=== PATIENT | female | born 1965 | race African-American/Black ===

== ENCOUNTER 2018-01-04 20:51 | Emergency (ER) | payer OTHER ==
[~2018-01-04] VITALS: Ht 160 cm; Wt 88.9 kg
[~2018-01-04 20:51] MED LIST: CIPRO HC OTIC S10 M1 OT; CIPROFLOXACIN500 M2 ORAL; LIPITOR40 MG ORAL; LISINOPRIL40 MG ORAL; NORCO 5-325 TA1 EACH ORAL; SOMA350 MG PO; TYLENOL WITH C1 EAC2 ORAL
[2018-01-04 21:05] VITALS: BP 135/95
[2018-01-04] MEDS ORDERED: Fluorescein Strips LEFT EYE ONE (21:15)
[2018-01-04] MEDS ORDERED: POLYTRIM OP SOL10 ML OPHTHALM (21:23)
[2018-01-04] MEDS ORDERED: HYDROCODON-ACE1 EA15 ORAL (21:23)
--- NOTE | 2018-01-04 21:24 | Emergency Room Report ---
History of Present Illness General Chief Complaint: Eye Problems Source: Patient Present Illness HPI Is a 52-year-old female with a history of lupus. She presents with chief complaint of right eye pain. Last night she accidentally scratched her eye with her nails. Since then his been painful. Tearing. Worse with lights. No nausea no vomiting. Better with darkness. Pain is 8 out of 10. Denies any other complaint. No blurry vision. No drainage. Allergies: Coded Allergies: PENICILLINS (Unverified Allergy, Severe, Hives, 05/22/14) TRAMADOL (Unverified Allergy, Severe, tongue swelling, 05/22/14) PREDNISONE (Unverified Allergy, Unknown, electrical shock to her legs, ) Patient History Past Medical History: see triage record, old chart reviewed Past Surgical History: other Pertinent Family History: none Social History: Denies: smoking Last Menstrual Period: na Now: No Immunizations: other Reviewed Nursing Documentation: PMH: Agreed; PSxH: Agreed Nursing Documentation-PMH Past Medical History: No History, Except For Hx Cardiac Problems: No Hx Hypertension: No Hx Pacemaker: No Hx Asthma: No Hx COPD: No Hx Diabetes: No Hx Cancer: No Hx Gastrointestinal Problems: No Hx Dialysis: No Hx Cerebrovascular Accident: No Hx Seizures: No Review of Systems Eye: Denies: eye pain, blurred vision ENT: Reports: ear pain; Denies: nose congestion, throat swelling Respiratory: Denies: cough, shortness of breath Cardiovascular: Denies: chest pain, palpitations Gastrointestinal: Denies: abdominal pain, diarrhea, nausea, vomiting Musculoskeletal: Denies: back pain, joint pain Skin: Denies: rash Neurological: Denies: headache, numbness Endocrine: Denies: increased thirst, increased urine Hematologic/Lymphatic: Denies: easy bruising All Other Systems: negative except mentioned in HPI Physical Exam Vital Signs Date Time Temp Pulse Resp B/P (MAP) Pulse Ox O2 Delivery O2 Flow Rate FiO2 01/04/18 20:58 98.1 86 18 135/95 96 Room Air vitals normal Sp02 EP Interpretation: reviewed, normal General Appearance: well appearing, no apparent distress, alert Head: normocephalic, atraumatic Eyes: right eye fluoroscene uptake, right eye other - cornea abrasion at 12 o' clock position; bilateral eye PERRL, bilateral eye EOMI ENT: hearing grossly normal, normal pharynx Neck: full range of motion, supple, no meningismus Respiratory: chest non-tender, lungs clear, normal breath sounds Cardiovascular #1: regular rate, rhythm, no murmur Gastrointestinal: normal bowel sounds, non tender, no mass, no organomegaly, no bruit, non-distended Musculoskeletal: back normal, gait/station normal, normal range of motion Psychiatric: mood/affect normal Skin: warm/dry Medical Decision Making Diagnostic Impression: Primary Impression: Corneal abrasion, right Qualified Codes: S05.01XA - Injury of conjunctiva and corneal abrasion without foreign body, right eye, initial encounter ER Course Patient with a cornea abrasion. Negative Lara sign. No globe rupture. No foreign body. We'll discharge home. Last Vital Signs Date Time Temp Pulse Resp B/P (MAP) Pulse Ox O2 Delivery O2 Flow Rate FiO2 01/04/18 20:58 98.1 86 18 135/95 96 Room Air Status: improved Disposition: HOME, SELF-CARE Condition: Stable Scripts Polymyxin/Trimethoprim (Polytrim Eye Drops) 10 Ml Drops 2 DROP OPHTHALM THREE TIMES A DAY, #1 EA Instill in affected eye for 7 days Prov: Abdulaziz Rust MD 01/04/18 Hydrocodone/Acetaminophen 5-325* (HYDROCODONE/ACETAMINOPHEN 5-325*) 1 Each Tablet 1 TAB ORAL Q6H PRN for For Pain, #10 TAB 0 Refills Prov: Abdulaziz Rust MD 01/04/18 Additional Instructions: Follow-up with your DrJerry in 2 to 3 days if not better. You may need a referral to see an eye doctor. Return if worse. Abdulaziz Rust MD Jan 04, 2018 21:24
[2018-01-04 21:30] VITALS: BP 136/90
== END 2018-01-04 21:30 | disposition home or self-care (01) ==
LOC: EMR 21:22
DX: S05.01XA Injury of conjunctiva and corneal abrasion without foreign body, right eye, initial encounter (principal); W50.4XXA Accidental scratch by another person, initial encounter; Y93.9 Activity, unspecified; Y92.9 Unspecified place or not applicable; Z88.0 Allergy status to penicillin; Z88.8 Allergy status to other drugs, medicaments and biological substances
CPT/HCPCS: 99283

== ENCOUNTER 2018-03-30 12:13 | Emergency (ER) | payer OTHER ==
[~2018-03-30] VITALS: Ht 160 cm; Wt 88.0 kg
[~2018-03-30 12:13] MED LIST changes: +HYDROCODON-ACE1 EA15 ORAL; +POLYTRIM OP SOL10 ML OPHTHALM
[2018-03-30] MEDS ORDERED: plaquenil (12:23)
--- NOTE | 2018-03-30 12:32 | NUR ---
ED Nurse Note: Pt came into the Er w/ complaints of dizziness x 1 month. Pt visited her primary and gave her vertigo medications. Her primary stated that after these medications, the vertigo will go away. Pt states she is still feeling dizzy. Complaining of generalized body pain 10/. A + O x4. Ambulatory. Skin warm to touch.
--- NOTE | 2018-03-30 12:45 | Emergency Room Report ---
History of Present Illness General Chief Complaint: Dizziness Source: Patient, Medical Record Present Illness HPI Patient presents with reports of dizziness ongoing for over the past month patient reports that she recently saw her primary physician who reported she likely had vertigo Patient is on multiple medications including medication pre-kidney transplant Trazodone, Flexeril patient has history of lupus Reports that this morning when getting up to go to the restroom she had an episode of acute increased dizziness this was followed by nausea Patient denies any headache however does have fibromyalgia with diffuse abdominal and body pain Does not report any difference from baseline Denies any posterior neck pain or photophobia denies any chest pain denies any focal weakness or change in speech Allergies: Coded Allergies: PENICILLINS (Unverified Allergy, Severe, Hives, 05/22/14) TRAMADOL (Unverified Allergy, Severe, tongue swelling, 05/22/14) PREDNISONE (Unverified Allergy, Unknown, electrical shock to her legs, ) Patient History Past Medical History: see triage record Pertinent Family History: none Last Menstrual Period: 07/25 Reviewed Nursing Documentation: PMH: Agreed; PSxH: Agreed Nursing Documentation-PMH Past Medical History: No History, Except For Hx Cardiac Problems: No Hx Hypertension: No Hx Pacemaker: No Hx Asthma: No Hx COPD: No Hx Diabetes: No Hx Cancer: No Hx Gastrointestinal Problems: No Hx Dialysis: No Hx Neurological Problems: No - lupus, spinal stenosis, peripheral neuropathy, arthritis Hx Cerebrovascular Accident: No Hx Seizures: No Review of Systems All Other Systems: negative except mentioned in HPI Physical Exam Vital Signs Date Time Temp Pulse Resp B/P (MAP) Pulse Ox O2 Delivery O2 Flow Rate FiO2 03/30/18 12:19 98.1 84 18 126/86 97 Room Air Sp02 EP Interpretation: reviewed, normal General Appearance: well appearing, no apparent distress Head: normocephalic, atraumatic Eyes: bilateral eye PERRL, bilateral eye EOMI ENT: hearing grossly normal, normal pharynx, TMs + canals normal, uvula midline Neck: full range of motion, supple, no meningismus, no bony tend Respiratory: lungs clear, normal breath sounds, no rhonchi, no respiratory distress, no retraction, no accessory muscle use Cardiovascular #1: normal peripheral pulses, regular rate, rhythm, no edema, no gallop, no JVD, no murmur Gastrointestinal: normal bowel sounds, non tender, soft, no mass, no organomegaly, non-distended, no guarding, no hernia, no pulsatile mass, no rebound Genitourinary: no CVA tenderness Musculoskeletal: normal inspection Neurologic: oriented x3, responsive, 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, motor strength/ tone normal, sensory intact Psychiatric: mood/affect normal Skin: normal color, no rash, warm/dry, palpation normal Lymphatic: normal inspection, no adenopathy Medical Decision Making Diagnostic Impression: Primary Impression: Dizziness ER Course Patient is a fairly complex patient with multiple differential to consideration including but not limited to intracranial ,cardiac cardiopulmonary and vascular emergencies Patient has baseline blood work initiated White blood cell count is mildly low CT head did not show any acute disease Patient has multiple comorbidities Has multiple medications as well No obvious central process is appreciated at this time And patient is recommended to follow closely with primary physician and lupus specialist Labs Test 03/30/18 12:45 White Blood Count 3.3 K/UL (4.8-10.8) Red Blood Count 4.68 M/UL (4.20-5.40) Hemoglobin 13.0 G/DL (12.0-16.0) Hematocrit 41.1 % (37.0-47.0) Mean Corpuscular Volume 88 FL (80-99) Mean Corpuscular Hemoglobin 27.8 PG (27.0-31.0) Mean Corpuscular Hemoglobin Concent 31.7 G/DL (32.0-36.0) Red Cell Distribution Width 12.8 % (11.6-14.8) Platelet Count 176 K/UL (150-450) Mean Platelet Volume 10.4 FL (6.5-10.1) Neutrophils (%) (Auto) % (45.0-75.0) Lymphocytes (%) (Auto) % (20.0-45.0) Monocytes (%) (Auto) % (1.0-10.0) Eosinophils (%) (Auto) % (0.0-3.0) Basophils (%) (Auto) % (0.0-2.0) Sodium Level 142 MMOL/L (136-145) Potassium Level 4.4 MMOL/L (3.5-5.1) Chloride Level 106 MMOL/L (98-107) Carbon Dioxide Level 29 MMOL/L (21-32) Anion Gap 7 mmol/L (5-15) Blood Urea Nitrogen 9 mg/dL (7-18) Creatinine 0.9 MG/DL (0.55-1.30) Estimat Glomerular Filtration Rate > 60 mL/min (>60) Glucose Level 102 MG/DL (74-106) Calcium Level 9.4 MG/DL (8.5-10.1) Rhythm Strip Diag. Results EP Interpretation: yes Rate: 80 Rhythm: NSR, no PVC's, no ectopy CT/MRI/US Diagnostic Results CT/MRI/US Diagnostic Results : Impression CT head no acute disease Last Vital Signs Date Time Temp Pulse Resp B/P (MAP) Pulse Ox O2 Delivery O2 Flow Rate FiO2 03/30/18 12:19 98.1 84 18 126/86 97 Room Air Status: improved Disposition: HOME, SELF-CARE Condition: Improved Additional Instructions: Patient is provided with the discharge instructions notified to follow up with primary doctor in the next 2-3 days otherwise return to the er with any worsening symptoms. Please note that this report is being documented using [employer] technology. This can lead to erroneous entry secondary to incorrect interpretation by the dictating instrument. Juan R Tim DO Mar 30, 2018 12:44
[2018-03-30 12:50] VITALS: BP 105/85
--- NOTE | 2018-03-30 12:50 | NUR ---
ED Nurse Note: Blood has been collected and sent to lab. Pt went down to CT via jonathan.
[2018-03-30 12:58] LABS: HEMATOCRIT 41.1 % (37.0-47.0); MEAN CORPUSCULAR VOLUME 88 FL (80-99); PLATELET COUNT 176 K/UL (150-450); RED BLOOD COUNT 4.68 M/UL (4.20-5.40); RED CELL DISTRIBUTION WIDTH 12.8 % (11.6-14.8); WHITE BLOOD COUNT 3.3 K/UL (4.8-10.8)
[2018-03-30 13:04] LABS: ANION GAP 7 mmol/L (5-15); BLOOD UREA NITROGEN 9 mg/dL (7-18); CALCIUM 9.4 MG/DL (8.5-10.1); CARBON DIOXIDE 29 MMOL/L (21-32); CHLORIDE 106 MMOL/L (98-107); CREATININE 0.9 MG/DL (0.55-1.30); POTASSIUM 4.4 MMOL/L (3.5-5.1); SODIUM 142 MMOL/L (136-145)
--- NOTE | 2018-03-30 13:06 | NUR ---
ED Nurse Note: Pt came back from CT via андрей.
--- NOTE | 2018-03-30 13:31 | Diagnostic Imaging Report ---
Indication: Dizziness, vertigo Technique: Continuous helical CT scanning of the head was performed utilizing automated exposure control without intravenous contrast material. Axial and coronal reconstructions were obtained. Comparison: None CT dose: Total DLP 1417.15 mGycm; CTDI vol 70.38 mGy Findings: Exam degraded by patient motion and streak artifact from patient's earrings. This particularly limits images through the skull base. A second acquisition was obtained, also with some motion in the skull base. Within these limitations: There is no acute intracranial hemorrhage, mass effect or cortical edema. There is no shift of midline structures. The ventricles, cisterns and sulci are within normal limits for age. Visualized mastoid air cells and paranasal sinuses are unremarkable. No focal lesions of the bony calvarium or soft tissues of the scalp are seen. IMPRESSION: Exam degraded by patient motion and streak artifact from patient's earrings. Within these limitations: No evidence of acute intracranial hemorrhage, mass effect or cortical edema. MRI may be obtained for more sensitive evaluation as clinically indicated. The CT scanner at [facility] is accredited by the [employer] and the scans are performed using protocols designed to limit radiation exposure to as low as reasonably achievable to attain images of sufficient resolution adequate for diagnostic evaluation.
[2018-03-30 13:38] VITALS: BP 123/82
--- NOTE | 2018-03-30 13:39 | NUR ---
ED Nurse Note: Discharge instructions given to pt. Answered all questions. Verbalized understanding. No acute distress noted. ID band removed. Left ER w/ steady gait and all belongings.
== END 2018-03-30 13:39 | disposition home or self-care (01) ==
LOC: EMR 13:30
DX: R42 Dizziness and giddiness (principal); Z88.0 Allergy status to penicillin; Z88.6 Allergy status to analgesic agent
CPT/HCPCS: 36415; 70450; 80048; 85007; 85025; 99284

== ENCOUNTER 2018-09-05 15:34 | Emergency (ER) | payer OTHER ==
[~2018-09-05] VITALS: Ht 160 cm; Wt 86.2 kg
[~2018-09-05 15:34] MED LIST changes: +plaquenil
[2018-09-05 15:40] VITALS: BP 135/86
--- NOTE | 2018-09-05 16:10 | NUR ---
ED Nurse Note: Patient presents to ER due right shoulder and right hand/wrist pain x 1 week; s/p fall; slipped on newspaper and slided down stairs. Reporst no head injury. Patient came to ER due to worsening pain, swelling over the affected area. Limited ROM. Patient unable to make a fist. Cap refill < 3 sec. Skin warm to touch. Provided comfort measures.
[2018-09-05] MEDS ORDERED: Methocarbamol 750mg tab ORAL ONE (16:15)
--- NOTE | 2018-09-05 17:39 | NUR ---
ED Nurse Note: Patient resting in bed, reports decreased tension on her body. Waiting for X-ray result.
--- NOTE | 2018-09-05 18:02 | Diagnostic Imaging Report ---
EXAM: XR Right Shoulder Complete, 2 or More Views CLINICAL HISTORY: PAIN TECHNIQUE: Two or more views of the right shoulder. COMPARISON: None FINDINGS: Bones/joints: No displaced fracture or dislocation identified. Tiny ossification in the right acromioclavicular joint may be related to old trauma or degenerative change. Soft tissues: Normal. IMPRESSION: No displaced fracture or dislocation identified.
--- NOTE | 2018-09-05 18:04 | Diagnostic Imaging Report ---
EXAM: XR Right Hand Complete, 3 or More Views CLINICAL HISTORY: PAIN TECHNIQUE: Frontal, lateral and oblique views of the right hand. COMPARISON: None FINDINGS: Bones/joints: No displaced fracture or dislocation identified. Joint space is maintained. No bony lesion. Soft tissues: Probable mild soft tissue swelling. IMPRESSION: No displaced fracture or dislocation identified.
--- NOTE | 2018-09-05 18:05 | Diagnostic Imaging Report ---
EXAM: XR Right Wrist, 2 Views CLINICAL HISTORY: PAIN TECHNIQUE: Frontal and lateral views of the right wrist. COMPARISON: None FINDINGS: Bones/joints: No displaced fracture or dislocation identified. Joint space is maintained. No bony lesion. Soft tissues: Probable mild soft tissue swelling. IMPRESSION: No displaced fracture or dislocation identified.
[2018-09-05] MEDS ORDERED: ROBAXIN-750750 MG PO (18:13)
[2018-09-05 18:20] VITALS: BP 126/87
--- NOTE | 2018-09-05 18:20 | NUR ---
ED Nurse Note: Applied sling to RUE as ordered. Patient is being discharged from medical care. Awake, alert and oriented x4. After care instructions, including prescriptions were given. Patient verbalized understanding of After care instructions. ID band was removed. Patient ambulated out with all personal belongings with steady gait.
--- NOTE | 2018-09-05 20:58 | Emergency Room Report ---
History of Present Illness General Chief Complaint: Pain Source: Patient, Medical Record Present Illness HPI Patient is a 53-year-old female presenting for pain after falling down the stairs approximately 1 week prior. She did not seek medical attention at that time. She states that she was walking down a flight of stairs, tripped, and fell. She broke her fall with her right hand. She denies hitting her head or loss of consciousness. Pain is a 9 out of 10 dull ache to the hand, wrist, and shoulder. Worse with movement and touch. She denies other symptoms including numbness, chest pain, shortness of breath, back pain Allergies: Coded Allergies: PENICILLINS (Unverified Allergy, Severe, Hives, 05/22/14) TRAMADOL (Unverified Allergy, Severe, tongue swelling, 05/22/14) PREDNISONE (Unverified Allergy, Unknown, electrical shock to her legs, ) Patient History Past Medical History: see triage record Pertinent Family History: none Last Menstrual Period: 1 yr ago Reviewed Nursing Documentation: PMH: Agreed; PSxH: Agreed Nursing Documentation-PMH Past Medical History: No History, Except For Hx Cardiac Problems: No Hx Hypertension: No Hx Pacemaker: No Hx Asthma: No Hx COPD: No Hx Diabetes: No Hx Cancer: No Hx Gastrointestinal Problems: No Hx Dialysis: No Hx Neurological Problems: No - lupus, spinal stenosis, peripheral neuropathy, arthritis Hx Cerebrovascular Accident: No Hx Seizures: No Review of Systems All Other Systems: negative except mentioned in HPI Physical Exam Vital Signs Date Time Temp Pulse Resp B/P (MAP) Pulse Ox O2 Delivery O2 Flow Rate FiO2 09/05/18 15:40 98.4 16 135/86 95 Room Air 09/05/18 15:40 82 Sp02 EP Interpretation: reviewed, normal General Appearance: no apparent distress, alert, GCS 15, non-toxic Head: normocephalic, atraumatic Eyes: bilateral eye normal inspection, bilateral eye PERRL Neck: full range of motion, no bony tend, supple/symm/no masses Respiratory: chest non-tender, lungs clear, normal breath sounds, speaking full sentences Musculoskeletal: back normal, gait/station normal, decreased range of motion, swelling, tender - R wrist, hand, and shoulder Neurologic: alert, oriented x3, responsive, motor strength/tone normal, sensory intact, speech normal Psychiatric: judgement/insight normal, memory normal, mood/affect normal, no suicidal/homicidal ideation Skin: no rash Procedures Splinting Splinting : Consent: Verbal Location: R arm Pre-Made Type: sling Pre-Proc Neuro Vasc Exam: normal Post-Proc Neuro Vasc Exam: normal Patient Tolerated: Well Complications: None Medical Decision Making PA Attestation Dr. Cash is my supervising physician. Patient management was discussed with my supervising physician Diagnostic Impression: Primary Impression: Contusion Qualified Codes: S60.221A - Contusion of right hand, initial encounter Additional Impression: Muscle strain ER Course The patient is a 53-year-old female presenting for right-sided extremity pain after falling downstairs 1 week prior Ddx considered include but not limited to sprain/strain, fracture, contusion Physical exam: Vitals are stable. No apparent distress There is tenderness to palpation over the right hand diffusely, right wrist, and right shoulder. +TTP over the R trapezius with noted stiffness. No deformity. Active range of motion is limited to these areas due to pain. Passive range of motion is intact X-ray to the right shoulder, hand, and wrist show no fracture or dislocation. There is mild swelling noted. The patient is given Robaxin and states that pain has decreased. She did not want any other pain medication. She states that she is being treated for fibromyalgia with pain medication. Right arm is placed in sling She is discharged home with prescription for Robaxin and is told to follow-up with primary doctor for further evaluation and treatment. ER precautions given Other X-Ray Diagnostic Results Other X-Ray Diagnostic Results #1: X-Ray ordered: R SHoulder # of Views/Limited Vs Complete: 3 View, Complete Indication: Pain EP Interpretation: Yes PA Xray: Interpretation reviewed, by supervising MD, and agrees with findings. Interpretation: no dislocation, no soft tissue swelling, no fractures Impression: No acute disease Electronically Signed by: Jacky Bedolla PA-C Other X-Ray Diagnostic Results #2: X-Ray ordered: R wrist # of Views/Limited Vs Complete: 3 View, Complete Indication: Pain EP Interpretation: Yes PA Xray: Interpretation reviewed Interpretation: no dislocation, no fractures, other - + STS Impression: No acute disease Electronically Signed by: Jacky Bedolla PA-C Other X-Ray Diagnostic Results #3: X-Ray ordered: R hand # of Views/Limited Vs Complete: 3 View, Complete Indication: Pain EP Interpretation: Yes BOBBI Xray: Interpretation reviewed, by supervising MD, and agrees with findings. Interpretation: no dislocation, no fractures, other - + STS Impression: No acute disease Electronically Signed by: Jacky Bedolla PA-C Last Vital Signs Date Time Temp Pulse Resp B/P (MAP) Pulse Ox O2 Delivery O2 Flow Rate FiO2 09/05/18 18:20 98.0 71 16 126/87 99 Room Air Status: improved Disposition: HOME, SELF-CARE Condition: Improved Scripts Methocarbamol* (ROBAXIN-750*) 750 Mg Tablet 750 MG PO TID, #21 TAB 0 Refills Prov: JACKY BEDOLLA 09/05/18 Patient Instructions: Contusion, Muscle Strain Additional Instructions: I discussed my findings with the patient. All questions and concerns have been answered. Treatment and medication compliance have been addressed. I advised the patient that they need to follow up with PMD in 3-5 days. Return to ED if pain remains or worsens, numbness or tingling occurs, new rash is noticed, fever is noticed, or if needed for any reason. Patient verbalized understanding of discharge instructions. JACKY BEDOLLA Sep 05, 2018 20:58
== END 2018-09-05 18:20 | disposition home or self-care (01) ==
LOC: EMR 16:02
DX: S60.221A Contusion of right hand, initial encounter (principal); T14.8XXA Other injury of unspecified body region, initial encounter; W01.0XXA Fall on same level from slipping, tripping and stumbling without subsequent striking against object, initial encounter; Y92.9 Unspecified place or not applicable; Z88.0 Allergy status to penicillin; G62.9 Polyneuropathy, unspecified; M25.511 Pain in right shoulder; M25.531 Pain in right wrist
CPT/HCPCS: 29105; 99284

== ENCOUNTER 2018-09-14 10:47 | Emergency (ER) | payer OTHER ==
[~2018-09-14] VITALS: Ht 160 cm; Wt 91.6 kg
[~2018-09-14 10:47] MED LIST changes: +ROBAXIN-750750 MG PO
--- NOTE | 2018-09-14 11:04 | NUR ---
ED Nurse Note: pt walked in due to lower back pain and posterior leg pain started when she fell on august 21 and got worsen yesterday. pt was seen in the ed secondary to fall on august 21 and was prescribed medication and sling. pt stated her lower back was not xrayed so she is asking for xray for her lower back. pt is not in distress. will continue to monitor.
[2018-09-14 11:06] VITALS: BP 131/87
--- NOTE | 2018-09-14 11:45 | NUR ---
ED Nurse Note: pt went to xray with tech
--- NOTE | 2018-09-14 11:51 | NUR ---
ED Nurse Note: pt went back from xray with tech
--- NOTE | 2018-09-14 11:59 | Diagnostic Imaging Report ---
Indication: Pain, status post fall one week ago Technique: 3 views of the lumbar spine Comparison: None Findings: Bony alignment is normal. Vertebral body heights are preserved. The disc spaces are preserved. There are small anterior osteophytes of the lower lumbar spine. No acute fractures. No dislocations. Impression: No acute bony trauma
--- NOTE | 2018-09-14 12:23 | NUR ---
ED Nurse Note: ermd on bedside relaying the xray result to the pt and pt able to verbalize understanding. will continue to monitor
[2018-09-14] MEDS ORDERED: CARISOPRODOL350 MG ORAL (12:35)
[2018-09-14 12:37] VITALS: BP 131/87
--- NOTE | 2018-09-14 12:37 | NUR ---
ER DISCHARGE NOTE: Patient is cleared to be discharged per ERMD, pt is aox4, on room air, with stable vital signs. pt was given dc and prescription instructions, pt was able to verbalize understanding, pt id band removed without complications. pt is able to ambulate with steady gait. pt took all belongings.
--- NOTE | 2018-09-14 15:05 | Emergency Room Report ---
History of Present Illness General Chief Complaint: Pain Source: Patient Present Illness Allergies: Coded Allergies: PENICILLINS (Unverified Allergy, Severe, Hives, 05/22/14) TRAMADOL (Unverified Allergy, Severe, tongue swelling, 05/22/14) PREDNISONE (Unverified Allergy, Unknown, electrical shock to her legs, ) Nursing Documentation-PMH Past Medical History: No History, Except For Hx Cardiac Problems: No Hx Hypertension: No Hx Pacemaker: No Hx Asthma: No Hx COPD: No Hx Diabetes: No Hx Cancer: No - LUPUS sle, FIBROMIALGIA, ARTHRITIS, Hx Gastrointestinal Problems: No Hx Dialysis: No Hx Neurological Problems: Yes - NEUROPATHY Hx Cerebrovascular Accident: No Hx Seizures: No Physical Exam Vital Signs Date Time Temp Pulse Resp B/P (MAP) Pulse Ox O2 Delivery O2 Flow Rate FiO2 09/14/18 10:55 97.9 74 16 131/87 (102) 99 Room Air Medical Decision Making Diagnostic Impression: Primary Impression: Back pain Additional Impression: Neuropathy Last Vital Signs Date Time Temp Pulse Resp B/P (MAP) Pulse Ox O2 Delivery O2 Flow Rate FiO2 09/14/18 12:37 97.9 74 16 131/87 99 Room Air Status: improved Disposition: HOME, SELF-CARE Condition: Stable Scripts Carisoprodol* (CARISOPRODOL*) 350 Mg Tablet 350 MG ORAL Q6H, #20 TAB Prov: Franco Keyes MD 09/14/18 Referrals: NON PHYSICIAN (PCP) Patient Instructions: Chronic Pain Franco Keyes MD Sep 14, 2018 15:05
== END 2018-09-14 12:37 | disposition home or self-care (01) ==
LOC: EMR 11:43
DX: M54.9 Dorsalgia, unspecified (principal); G62.9 Polyneuropathy, unspecified; M79.7 Fibromyalgia; M19.90 Unspecified osteoarthritis, unspecified site; Z88.0 Allergy status to penicillin; Z88.8 Allergy status to other drugs, medicaments and biological substances
CPT/HCPCS: 72020; 99283

== ENCOUNTER 2019-04-12 11:19 | Emergency (ER) | payer OTHER ==
[~2019-04-12] VITALS: Ht 160 cm; Wt 89.8 kg
[~2019-04-12 11:19] MED LIST changes: +CARISOPRODOL350 MG ORAL
[2019-04-12 11:22] VITALS: BP 128/82
--- NOTE | 2019-04-12 11:56 | Emergency Room Report ---
History of Present Illness General Chief Complaint: Flu Like Symptoms Source: Patient Present Illness HPI Patient is a 53-year-old female past medical history of hypertension and fibromyalgia and lupus who presents to the ER complaining of flulike symptoms for the past 2 days. Patient complains of mild generalized headache, nasal congestion and cough. Patient complains of greenish phlegm when she coughs and from her nose. Patient denies any fever or chills. She states that she did receive her influenza vaccination this year. She denies any recent travel. She does say that she has many sick contacts when she takes access. She denies any chest pain or shortness of breath. She denies any history of smoking. She denies any abdominal pain nausea or vomiting. Patient is accompanied by her black leather trimmer. She denies any rash or altered mental status. Allergies: Coded Allergies: PENICILLINS (Unverified Allergy, Severe, Hives, 05/22/14) TRAMADOL (Unverified Allergy, Severe, tongue swelling, 05/22/14) PREDNISONE (Unverified Allergy, Unknown, electrical shock to her legs, ) Patient History Last Menstrual Period: 2 years ago Reviewed Nursing Documentation: PMH: Agreed; PSxH: Agreed Nursing Documentation-PMH Past Medical History: No History, Except For Hx Pacemaker: No Hx Asthma: No Hx COPD: No Hx Diabetes: No Hx Cancer: No - LUPUS sle, FIBROMIALGIA, ARTHRITIS, Hx Gastrointestinal Problems: No Hx Dialysis: No Hx Neurological Problems: Yes - NEUROPATHY Hx Cerebrovascular Accident: No Hx Seizures: No Review of Systems All Other Systems: negative except mentioned in HPI Physical Exam Vital Signs Date Time Temp Pulse Resp B/P (MAP) Pulse Ox O2 Delivery O2 Flow Rate FiO2 04/12/19 11:22 97.9 84 16 128/82 (97) 97 Room Air Sp02 EP Interpretation: reviewed General Appearance: no apparent distress, alert, GCS 15, non-toxic Head: normocephalic, atraumatic Eyes: bilateral eye normal inspection, bilateral eye PERRL ENT: hearing grossly normal, normal pharynx, no angioedema, normal voice Neck: full range of motion, supple/symm/no masses Respiratory: chest non-tender, normal breath sounds, speaking full sentences, wheezing Cardiovascular #1: regular rate, rhythm, no edema Gastrointestinal: normal bowel sounds, non tender, soft, non-distended, no guarding, no rebound Rectal: deferred Genitourinary: normal inspection, no CVA tenderness Musculoskeletal: back normal, normal range of motion, calf tenderness, gait/ station normal, non-tender Neurologic: alert, motor strength/tone normal, oriented x3, sensory intact, responsive, speech normal Psychiatric: judgement/insight normal, memory normal, mood/affect normal, no suicidal/homicidal ideation Skin: no rash Lymphatic: no adenopathy Medical Decision Making ER Course Patient given 1 g of Tylenol p.o. as well as albuterol and Atrovent treatment. She is improved. She is in no acute distress. Vital signs are stable. Chest x -ray demonstrates no acute infiltrate. Flu once a negative. Patient will be treated with azithromycin for her bronchopneumonia. After discussing risks and benefits of further diagnostics, treatment plans, as well as indications for and risks of admission, the patient is agreeable to being discharged home. I have explained that their evaluation and treatment in the emergency department today is an important step towards them achieving better health but that their evaluation today is not intended to replace further evaluation and treatment by a physician in their local clinic. I have explained that while the current findings suggest no immediate life threatening emergency they will require further evaluation and treatment by a physician of their choice in their area. They understand that it will be necessary for them to review the final reports of their ED visit with their clinic physician. We have reviewed indications for return to the Emergency Department. I have explained that additional time may need to pass and/or additional testing as an outpatient may be necessary before a definitive diagnosis can be made. They tell me they are willing to follow up as instructed within the timeframe I recommend. They appear to understand what we discussed. Additionally they understand that if they are unable to be seen by an outpatient physician they are welcome, and in fact should, return to the Emergency Department for a repeat evaluation. The patient is stable at time of discharge. Reevaluation Time: 12:34 - Upon reevaluation patient states that she feels improved after her breathing treatments. She is in no acute respiratory distress. She is not hypoxic. Last Vital Signs Date Time Temp Pulse Resp B/P (MAP) Pulse Ox O2 Delivery O2 Flow Rate FiO2 04/12/19 11:22 97.9 84 16 128/82 (97) 97 Room Air Status: improved Disposition: HOME, SELF-CARE Condition: Stable Scripts Acetaminophen* (TYLENOL EXTRA STRENGTH*) 500 Mg Tablet 500 MG ORAL Q8H PRN for Prn Headache/Temp > 101, #30 TAB 0 Refills Prov: Pebbles Gerard M.D. 04/12/19 Albuterol Sulfate (VENTOLIN HFA) 18 Gm Hfa.aer.ad 2 PUFFS INH EVERY 6 HOURS PRN for For Cough, #18 GM 0 Refills Prov: Pebbles Gerard M.D. 04/12/19 Azithromycin* (ZITHROMAX*) 250 Mg Tablet 250 MG ORAL DAILY, #6 TAB 0 Refills Take two tables once daily for 1 day, then one tablet once daily for 4 days. Prov: Pebbles Gerard M.D. 04/12/19 Pebbles Gerard M.D. Apr 12, 2019 11:56
[2019-04-12] MEDS ORDERED: Acetaminophen 500mg (ES) tab ORAL ONE (12:00)
[2019-04-12] MEDS ORDERED: Ipratropium 0.02% Inh Soln 2.5ml UD HHN ONE (12:00)
[2019-04-12] MEDS ORDERED: Albuterol ud Inhalation HHN ONE (12:00)
--- NOTE | 2019-04-12 12:05 | NUR ---
ED Nurse Note:pt with resp here o administer hhn
--- NOTE | 2019-04-12 12:23 | NUR ---
ED Nurse Note: pt relates having generalized body aches and not feeling well and having a hard time catching breath. tolerates hhn well inf swab obtained
[2019-04-12] MEDS ORDERED: VENTOLIN HFA18 GM INH (13:15)
[2019-04-12] MEDS ORDERED: TYLENOL EXTRA500 MG ORAL (13:15)
[2019-04-12] MEDS ORDERED: ZITHROMAX250 MG ORAL (13:15)
--- NOTE | 2019-04-12 13:29 | Diagnostic Imaging Report ---
Indication: Dyspnea Comparison: None A single view chest radiograph was obtained. Findings: Cardiomediastinal appearance is within normal limits for age. The lungs are clear. Pulmonary vascularity is appropriate. The diaphragmatic contour is smooth and costophrenic angles are sharp. No pleural effusions are identified. The bones are unremarkable. Impression: No acute findings
--- NOTE | 2019-04-12 13:32 | NUR ---
ER DISCHARGE NOTE: Patient is cleared to be discharged per ERMD, pt is aox4, on room air, with stable vital signs. pt was given dc and prescription instructions, pt was able to verbalize understanding, pt id band removed. pt is able to ambulate with steady gait. pt took all belongings.
[2019-04-12 13:33] VITALS: BP 121/89
== END 2019-04-12 13:33 | disposition home or self-care (01) ==
LOC: EMR 12:22
DX: R51 Headache (principal); M79.7 Fibromyalgia; Z88.0 Allergy status to penicillin; Z88.8 Allergy status to other drugs, medicaments and biological substances; M19.90 Unspecified osteoarthritis, unspecified site; G62.9 Polyneuropathy, unspecified
CPT/HCPCS: 71045; 86710; Z7502; 99284